=== PATIENT | male | born 2000 | race Caucasian/White ===

== ENCOUNTER 2023-05-13 13:28 | Inpatient (IN) | payer BC ==
[2023-05-13 14:50] LABS: #Basophils 0.1 10x3/uL (0.0-0.2); #Monocytes 0.8 10x3/uL (0.0-1.1); #Neutrophils 16.9 10x3/uL (1.5-8.4); %Basophils 0.6 % (0.0-2.0); %Eosinophils 0.1 % (0.0-6.0); %Lymphocytes 5.2 % (18.0-47.0); %Monocytes 4.4 % (0.0-10.0); %Neutrophils 89.3 % (40.0-75.0); Hemoglobin 16.5 g/dL (13.5-17.5); Mean Corpuscular HGB CONC 35.9 g/dL (32.0-36.0); Mean Corpuscular Hemoglobin 32.9 pg (27.0-33.0); Mean Corpuscular Volume 91.6 fl (81.2-95.1); Mean Platelet Volume 11.1 fl (7.4-10.4); Platelet Count 342 10x3/uL (150-450); RBC Distribution Width 12.7 % (11.5-14.5); Red Blood Cell (RBC) Count 5.02 10x6/uL (4.32-5.72)
[2023-05-13 14:52] LABS: ALT (SGPT) 31 U/L (8-55); AST (SGOT) 51 U/L (5-34); Albumin 5.6 g/dL (3.5-5.0); Alkaline Phosphatase 95 U/L (50-130); Anion Gap 33 mmol/L (10-20); BUN (Urea Nitrogen) 15 mg/dL (8.9-20.6); Bilirubin, Total 0.9 mg/dL (0.2-1.2); Calc. Creatinine Clearance 0 mL/min (70-130); Calcium 10.7 mg/dL (7.8-10.44); Carbon Dioxide 11 mmol/L (22-29); Chloride 100 mmol/L (98-107); Estimated GFR 122; Globulin 3.7 g/dL (2.4-3.5); Glucose 119 mg/dL (70-105); Potassium 5.5 mmol/L (3.5-5.1); Protein, Total 9.3 g/dL (6.0-8.3); Sodium 138 mmol/L (136-145)
[2023-05-13 15:05] LABS: Phosphorus 2.6 mg/dL (2.3-4.7)
[2023-05-13] MEDS ORDERED: Lorazepam 2 MG/ML VIAL ONE (15:05)
[2023-05-13 15:16] LABS: Magnesium 2.1 mg/dL (1.7-2.2)
[2023-05-13 15:49] LABS: Bilirubin Neg (Negative); Blood, Urine Negative (Negative); Clarity Clear (Clear); Glucose, Urine (Dipstick) Normal (Negative); Ketone, Urine 150 mg/dL (Negative); Leukocyte Negative (Negative); Nitrite Negative (Negative); Protein, Urine (Dipstick) 30 mg/dl (Neg-Trace); Urobilinogen Normal mg/dL (Less than 2)
[2023-05-13 15:56] LABS: Amphetamine Detected (NotDetected); Barbiturates Screen Not Detected (NotDetected); Benzodiazepine Screen Not Detected (NotDetected); Cocaine Metabolite Screen Not Detected (NotDetected); Methadone Not Detected (NotDetected); Methamphetamine Not Detected (NotDetected); Opiate Screen Not Detected (NotDetected); Oxycodone Screen Not Detected (NotDetected); Phencyclidine (PCP) Not Detected (NotDetected); THC/Cannabinoid Screen Detected (NotDetected); Tricyclic Screen Not Detected (NotDetected)
[2023-05-13 16:00] LABS: RBC/HPF 0-3 HPF (0-3)
[2023-05-13 16:01] LABS: Bacteria/HPF 1+ HPF (None Seen); CAUTI Indications for Culture Fever or rigors; Mucous/LPF Rare LPF (<2+); Squamous Epithelial 0-3 HPF (0-3); WBC/HPF 0-3 HPF (0-3)
[2023-05-13 16:05] LABS: Urine Culture Reflex No No
[2023-05-13] MEDS ORDERED: Acetaminophen 325 MG TAB PO PRN (16:12)
[2023-05-13] MEDS ORDERED: Dextrose 50% Abboject 50 ML SYRINGE SLOW IVP PRN ×2 (16:14→16:18)
[2023-05-13] MEDS ORDERED: Electrolyte Replacement Protocol 1 EACH IVPB ONE (16:14)
[2023-05-13] MEDS ORDERED: NS 0.9% w/ 20 MEQ KCL 1,000 ML IV PRN ×2 (16:14)
[2023-05-13] MEDS ORDERED: Sodium Chloride 0.9% 1,000 ML IV PRN ×4 (16:14)
[2023-05-13] MEDS ORDERED: Dextrose 5 %-0.45 % NaCl 1,000 ML IV PRN (16:14)
[2023-05-13] MEDS ORDERED: D5 1/2 NS w/20 mEq KCL 1,000 ML IV PRN (16:14)
[2023-05-13] MEDS ORDERED: HUMULIN R 100 UNITS in Sodium Chloride 0.9% 100 ML IVPB SCH (16:15)
[2023-05-13] MEDS ORDERED: Dextrose 5% in Water 1,000 ML IV PRN (16:18)
[2023-05-13] MEDS ORDERED: HumaLOG 300 UNITS/3 ML VIAL SC PRN (16:18)
[2023-05-13] MEDS ORDERED: Glucagon 1 MG/ML KIT IM PRN (16:18)
[2023-05-13] MEDS ORDERED: Lorazepam 2 MG/ML VIAL SLOW IVP PRN (16:35)
[2023-05-13 17:17] LABS: Alcohol Less than 10.0 mg/dL (Less than 10); Anion Gap 25 mmol/L (10-20); BUN (Urea Nitrogen) 14 mg/dL (8.9-20.6); Calc. Creatinine Clearance 0 mL/min (70-130); Calcium 9.4 mg/dL (7.8-10.44); Carbon Dioxide 15 mmol/L (22-29); Chloride 101 mmol/L (98-107); Estimated GFR 129; Glucose 190 mg/dL (70-105); Potassium 5.8 mmol/L (3.5-5.1); Sodium 135 mmol/L (136-145)
[2023-05-13] MEDS ORDERED: INSULIN REGULAR IN 0.9 % NACL 100 UNITS/100 ML BAG ONE (18:34)
[2023-05-13 18:49] LABS: Lactic Acid 2.2 mmol/L (0.5-2.2)
[2023-05-13 20:37] LABS: Anion Gap 23 mmol/L (10-20); BUN (Urea Nitrogen) 13 mg/dL (8.9-20.6); Calc. Creatinine Clearance 0 mL/min (70-130); Carbon Dioxide 13 mmol/L (22-29); Chloride 103 mmol/L (98-107); Estimated GFR 129; Glucose 211 mg/dL (70-105); Potassium 4.3 mmol/L (3.5-5.1); Sodium 135 mmol/L (136-145)
[2023-05-13 20:44] LABS: Actual Bicarbonate (HCO3v) 15.2 mEq/L (22-28); Base Excess -6.6 mEq/L (-2 - +2); Calcium, Ionized (venous) 0.99 mmol/L (1.16-1.32); Chloride (VBG) 104 mmol/L (98-106); Critical Notified By: CP.PH; Hematocrit-VBG 42 % (42.0-52.0); Hemoglobin (Hb) 14.4 g/dL (13.2-17.3); Puncture Site Other Site; RapidComm Collect By LAB.YY; Sodium 136 mmol/L (133-146)
[2023-05-14] MEDS ORDERED: Thiamine 100 MG TAB PO SCH (09:00)
[2023-05-14] MEDS ORDERED: Folic Acid 1 MG TAB PO SCH (09:00)
== END 2023-05-13 21:22 | disposition short-term general hospital (02) | DRG 639 ==
LOC: CSHERS 13:28 → CSHERHOLD 16:12
PROVIDERS: ADMIT Family Medicine; ATTEND Family Medicine
PROC: 4A043R1 Measurement of Venous Saturation, Peripheral, Percutaneous Approach (ICD-10-PCS; principal; 2023-05-13)
PROC: HZ2ZZZZ Detoxification Services for Substance Abuse Treatment (ICD-10-PCS; 2023-05-13)
DX: E10.10 Type 1 diabetes mellitus with ketoacidosis without coma (principal); F32.A Depression, unspecified; Z83.3 Family history of diabetes mellitus; D72.829 Elevated white blood cell count, unspecified; F10.20 Alcohol dependence, uncomplicated; Z71.41 Alcohol abuse counseling and surveillance of alcoholic
CPT/HCPCS: 36415; 36416; 71045; 80053; 80306; 80307; 81001; 82010; 82805; 83605; 83735; 84100; 85025; 93005; J1815; J2060